=== PATIENT | female | born 1960 | race Caucasian/White ===

== ENCOUNTER 2017-08-17 13:51 | Emergency (ER) | payer OTHER ==
[2017-08-17 14:16] VITALS: O2SAT 97
--- NOTE | 2017-08-17 15:27 | C.PDOC ---
History Of Present Illness Kim Cobian is a 57 year old female, with a past medical history of hypothyroidism, who presents to the emergency department complaining of left knee pain s/p fall onset since yesterday. Patient reports she was leaning down cleaning her bathroom when she slipped and fell. Patient states the symptoms worsen with ambulation and describes a "pulling" sensation on her left knee. Patient denies any fever, chills, nausea, vomit or abdominal pain. No further medical complaints. PMD: Shaik Schwartz Time Seen by Provider: 08/17/17 15:01 Chief Complaint (Nursing): Lower Extremity Problem/Injury History Per: Patient History/Exam Limitations: no limitations Onset/Duration Of Symptoms: Days (x1) Current Symptoms Are (Timing): Still Present Severity: Mild - Knee Description Of Injury: Fell Currently Unable To: Bear Weight Past Medical History Reviewed: Historical Data, Nursing Documentation, Vital Signs Vital Signs: Last Vital Signs Temp 98.1 F 08/17/17 16:30 Pulse 67 08/17/17 16:30 Resp 18 08/17/17 16:30 BP 118/77 08/17/17 16:30 Pulse Ox 97 08/17/17 16:30 - Medical History PMH: Hypothyroidism Surgical History: Cholecystectomy Family History: States: Unknown Family Hx - Social History Hx Tobacco Use: No Hx Alcohol Use: No Hx Substance Use: No - Immunization History Hx Tetanus Toxoid Vaccination: No Hx Influenza Vaccination: No Hx Pneumococcal Vaccination: No Review Of Systems Except As Marked, All Systems Reviewed And Found Negative. Constitutional: Negative for: Fever, Chills Gastrointestinal: Negative for: Nausea, Vomiting, Abdominal Pain Musculoskeletal: Positive for: Leg Pain (left knee pain ) Physical Exam - Physical Exam Appears: Well, Non-toxic, No Acute Distress Skin: Normal Color, Warm, Dry Head: Atraumatic, Normacephalic Eye(s): bilateral: Normal Inspection, PERRL, EOMI Ear(s): Bilateral: Normal Back: Normal Inspection Extremity: Normal ROM, Tenderness (left knee), No Pedal Edema, No Deformity Extremity: Left: Painful To Bear Weight Neurological/Psych: Oriented x3, Normal Speech, Normal Motor, Normal Sensation ED Course And Treatment O2 Sat by Pulse Oximetry: 97 (RA) Pulse Ox Interpretation: Normal - Other Rad knee xray X-Ray: Interpreted by Me Interpretation: no acute fx or dislocation Medical Decision Making Medical Decision Making: Initial Plan: --Motrin Tab 600 mg PO --Maintain Knee Immobilizer Scribe Attestation The documentation for this encounter was entered by Srinivasan Rankin acting as a scribe for oJelle OKEEFE All medical record entries made by the Scribe were at my direction and personally dictated by me. I have reviewed the chart and agree that the record accurately reflects my personal performance of the history, physical exam, medical decision making, and the department course for this patient. I have also personally directed, reviewed, and agree with the discharge instructions and disposition. Disposition Counseled Patient/Family Regarding: Studies Performed, Diagnosis, Need For Followup, Rx Given - Disposition Referrals: Shaik Schwartz MD [Staff Provider] - Leonarda Lujan MD [Staff Provider] - Disposition: HOME/ ROUTINE Disposition Time: 15:52 Condition: STABLE Additional Instructions: FOLLOW UP WITH PMD AND IF PAIN PERSISTS WITH ORTHOPEDIST ON SATURDAY FOR RE- EVALUATION. OFFICIAL XRAY REPORT OF KNEE IS STILL PENDING. KNEE IMMOBILIZER AND CRUTCHES FOR WALKING. IF SYMPTOMS GET WORSE OR ANY NEW CONCERNING SYMPTOMS DEVELOP RETURN TO ED. Prescriptions: Ibuprofen [Motrin Tab] 1 tab PO Q6H PRN #15 tab PRN Reason: Pain, Moderate (4-7) Instructions: Knee Sprain (ED), Knee Immobilizer (ED) Forms: [facility] (Cam[place]onian), Gen Discharge Inst Brazilian Print Language: AMERICAN - Clinical Impression Clinical Impression: Knee sprain
--- NOTE | 2017-08-17 16:10 | RAD ---
PROCEDURE: Left Knee Radiographs. HISTORY: Pain. COMPARISON: None. FINDINGS: BONES: Normal. No fracture. JOINTS: Normal. No osteoarthritis. JOINT EFFUSION: None. OTHER FINDINGS: None. IMPRESSION: Normal radiographs of the left knee.
[2017-08-17 16:49] VITALS: BP 118/77; PULSE 67; RESP 18; TEMP 98.1
== END 2017-08-17 16:50 | disposition home or self-care (01) ==
LOC: C.ER 13:51
DX: S83.92XA Sprain of unspecified site of left knee, initial encounter (principal); W01.0XXA Fall on same level from slipping, tripping and stumbling without subsequent striking against object, initial encounter; Y93.E5 Activity, floor mopping and cleaning; Y92.002 Bathroom of unspecified non-institutional (private) residence as the place of occurrence of the external cause